=== PATIENT | male | born 1965 | race Two or more races ===

== ENCOUNTER 2021-02-27 23:51 | Emergency (ER) | payer OTHER ==
[~2021-02-27] VITALS: Ht 160 cm; Wt 65.8 kg
[2021-02-27 23:51] VITALS: BP 125/87
== END 2021-02-28 03:11 | disposition left against medical advice (07) ==
LOC: EEVIPCON 23:54 → ER 23:54
DX: M79.10 Myalgia, unspecified site (principal); Z53.21 Procedure and treatment not carried out due to patient leaving prior to being seen by health care provider; V89.2XXA Person injured in unspecified motor-vehicle accident, traffic, initial encounter; Y93.89 Activity, other specified; Y92.89 Other specified places as the place of occurrence of the external cause; Y99.8 Other external cause status

== ENCOUNTER 2021-03-18 18:10 | Emergency (ER) | payer OTHER ==
[~2021-03-18] VITALS: Ht 165.1 cm; Wt 72.6 kg
[2021-03-18] MEDS ORDERED: SODIUM CHLORIDE 0.9% 1,000 ML IVB ONE (18:45)
[2021-03-18 19:30] LABS: Basophils # (auto) 0 10 ^3/uL (0-0.2); Eosinophils # (auto) 0 10 ^3/uL (0-0.8); Eosinophils % (auto) 0.6 % (0.0-7.0); Hematocrit 46.4 % (41.0-53.0); Hemoglobin 15.5 g/dL (13.5-17.5); Lymphocytes % (auto) 28.6 % (10.0-50.0); Mean Corpuscular Hemoglobin 32.3 pg (28.0-32.0); Mean Corpuscular Hgb Conc. 33.4 g/dL (32.0-36.0); Mean Corpuscular Volume 96.7 fL (80.0-100.0); Monocytes # (auto) 0.5 10 ^3/uL (0-1.3); Monocytes % (auto) 7.6 % (0.0-12.0); Neutrophils # (auto) 4.5 10 ^3/uL (1.6-8.6); Neutrophils % (auto) 63.2 % (37.0-80.0); Nucleated Red Blood Cells % 0.2 %; Red Cell Distribution Width 14.9 % (11.8-14.3); White Blood Cell 7.1 10^3/uL (4.4-10.8)
[2021-03-18 20:01] LABS: Chloride 110 mmol/L (98-107); Potassium 3.9 mmol/L (3.5-5.1); Sodium 144 mmol/L (136-145)
[2021-03-18 20:05] LABS: Alanine Aminotransferase 46 U/L (16-61); Albumin 3.6 g/dL (3.4-5.0); Anion Gap 12 (5-15); BUN/Creatinine Ratio 13.5; Blood Urea Nitrogen 12 mg/dL (7-18); Calcium 8.5 mg/dL (8.5-10.1); Carbon Dioxide 22 mmol/L (21-32); GFR African American 115 mL/min; GFR Non-African American 95 mL/min; Glucose 104 mg/dL (74-106); Magnesium 2.6 mg/dL (1.6-2.6)
[2021-03-18 20:24] LABS: Alkaline Phosphatase 100 U/L (45-117); Aspartate Aminotransferase 24 U/L (15-37); Bilirubin, Total 0.2 mg/dL (0.2-1.0); Total Protein 7.5 g/dL (6.4-8.2)
[2021-03-19 04:30] VITALS: BP 99/61
== END 2021-03-19 06:41 | disposition home or self-care (01) ==
LOC: EDBD 18:10 → ER 18:11
DX: F10.129 Alcohol abuse with intoxication, unspecified (principal); R41.0 Disorientation, unspecified; R94.31 Abnormal electrocardiogram [ECG] [EKG]; Y90.5 Blood alcohol level of 100-119 mg/100 ml
CPT/HCPCS: 36415; 71045; 80053; 80320; 83735; 84484; 85025; 93005; 96360; 96361; 99285; J7030

== ENCOUNTER 2022-02-04 21:20 | Emergency (ER) | payer OTHER ==
[~2022-02-04] VITALS: Ht 172.7 cm; Wt 88.0 kg
[2022-02-05 08:18] VITALS: BP 130/73
== END 2022-02-05 08:39 | disposition home or self-care (01) ==
LOC: EDBD 21:20 → ER 21:20
DX: S00.81XA Abrasion of other part of head, initial encounter (principal); F10.129 Alcohol abuse with intoxication, unspecified; W18.39XA Other fall on same level, initial encounter; Y93.89 Activity, other specified; Y92.89 Other specified places as the place of occurrence of the external cause; Y99.8 Other external cause status; Y90.9 Presence of alcohol in blood, level not specified
CPT/HCPCS: 70450; 70486

== ENCOUNTER 2022-03-27 18:13 | Emergency (ER) | payer OTHER ==
[~2022-03-27] VITALS: Ht 172.7 cm; Wt 100.0 kg
[2022-03-27] MEDS ORDERED: SODIUM CHLORIDE 0.9% 1,000 ML IV ONE (19:00)
[2022-03-28 05:08] VITALS: BP 97/66
== END 2022-03-28 08:29 | disposition home or self-care (01) ==
LOC: EDBD 18:13 → ER 18:16
DX: F10.129 Alcohol abuse with intoxication, unspecified (principal); Y90.8 Blood alcohol level of 240 mg/100 ml or more
CPT/HCPCS: 96360; 99283; J7030

== ENCOUNTER 2024-11-25 14:54 | Emergency (ER) | payer OTHER ==
[~2024-11-25] VITALS: Ht 167.6 cm; Wt 91.0 kg
[2024-11-25 14:57] VITALS: BP 149/79; RESP 14; TEMP 98.9; O2SAT 95
[2024-11-25 15:00] VITALS: PULSE 98
--- NOTE | 2024-11-25 15:11 | ED.PDOC ---
Altered Mental Status HPI Comments 59 y/o M, BIBA, for CC of ALOC. EMS reports, patient is coming from [facility] where he was found on the ground, drooling, and not behaving appropriately. Upon arrival to scene, patient is unable to answer questions however, is Scottish speaking. It is unknown at this time if patient has any mental delays d/t cur rent condition; no other symptoms or modifiers are obtainable. Chief Complaint: ALOC Time Seen by MD: 15:00 Primary Care Provider: UNKNOWN Reviewed Notes: Nurses Notes, Sheltered Workshop Executive Director Notes, Medications, Allergies Allergies: Coded Allergies: No Known Drug Allergy (Verified Allergy, Unknown, 04/15/23) Information Source: Emergency Med Personnel Mode of Arrival: EMS Severity: Moderate Timing: Minutes Duration: Since onset Prehospital treatment: None Recent: None Associated Signs and Symptoms: None Past Medical History PAST MEDICAL HISTORY: Unobtainable Surgical History: Unobtainable Family History Family History: Unobtainable Social History Smoker: Unobtainable Alcohol: Heavy Drugs: Unobtainable Unable to Obtain due to: Altered Mental Status Physical Exam General Appearance: No Apparent Distress, Normal HEENT: Normal ENT Inspection, Pharynx Normal Neck: Full Range of Motion, Non-Tender, Normal, Normal Inspection Respiratory: Chest Non-Tender, Lungs Clear, No Accessory Muscle Use, No Respiratory Distress, Normal Breath Sounds Cardiovascular: No Edema, No Murmur, No Gallop, Normal Peripheral Pulses, Regular Rate/Rhythm Breast Exam: Deferred Gastrointestinal: No Organomegaly, Non Tender, No Pulsatile Mass, Normal Bowel Sounds, Soft Genitalia: Deferred Pelvic: Deferred Rectal: Deferred Extremities: No calf tenderness, Normal capillary refill, Normal inspection, Normal range of motion, Non-tender, No pedal edema Musculoskeletal : Apperance: Normal Neurologic: linotype mechanic II-XII nml as Tested, No Motor Deficits, Normal Mood, Sensory Deficit, Speech Problem, Other (A&Ox0) Cerebellar Function: Normal Reflexes: Normal Skin: Dry, Normal Color, Warm Lymphatic: No Adenopathy Was a procedure done? Was a procedure done?: No Differential Diagnosis (ALOC) Differential Diagnosis: Dehydration, Encephalopathy, ETOH Intoxication X-Ray, Labs, Meds, VS Vital Signs Date Time Temp Pulse Resp B/P (MAP) Pulse Ox O2 Delivery O2 Flow Rate FiO2 6/10/25 14:57 98.9 101 14 149/79 (224) 43 98.9 Time of 1ST Reevaluation: 15:30 Reevaluation 1ST: Unchanged Patient Education/Counseling: Diagnosis, Treatment Family Education/Counseling: No Family Present Critical Care Note Critical Care Time?: No Stability Stability form required: No Heart Score Heart Score: Heart Score Response (Comments) Value History N/A 0 EKG N/A 0 Age N/A 0 Risk Factors N/A 0 Troponin N/A 0 Total 0 I personally scribed for CHANELLE POST MD ([email or web address]) on 11/25/24 at 15:11. Electronically submitted by Maria Isabel Canales ([email or web address]). I personally scribed for CHANELLE POST MD ([email or web address]) on 11/25/24 at 15:15. Electronically submitted by Maria Isabel Canales ([email or web address]). CHANELLE POST MD Nov 25, 2024 15:11
[2024-11-25 15:40] LABS: Basophils # (auto) 0 10 ^3/uL (0-0.2); Basophils % (auto) 0.1 % (0.0-2.0); Eosinophils # (auto) 0.1 10 ^3/uL (0-0.8); Eosinophils % (auto) 0.6 % (0.0-7.0); Hematocrit 45.2 % (41.0-53.0); Hemoglobin 15.8 g/dL (13.5-17.5); Lymphocytes # (auto) 1.9 10 ^3/uL (0.4-5.4); Lymphocytes % (auto) 20.1 % (10.0-50.0); Mean Corpuscular Hemoglobin 32.3 pg (28.0-32.0); Mean Corpuscular Hgb Conc. 34.9 g/dL (32.0-36.0); Mean Corpuscular Volume 92.6 fL (80.0-100.0); Monocytes # (auto) 0.4 10 ^3/uL (0-1.3); Monocytes % (auto) 4.2 % (0.0-12.0); Nucleated Red Blood Cells % 0.1 %; Platelet Count (auto) 237 10^3/uL (140-450); Red Blood Cells 4.88 10^6/uL (4.5-5.90); Red Cell Distribution Width 13.4 % (11.8-14.3); White Blood Cell 9.3 10^3/uL (4.4-10.8)
--- NOTE | 2024-11-25 15:44 | ECG ---
[facility] Test Date: 2024-11-25 Test Time: 15:00:14 Pat Name: YAMILET HAJI Department: ED Room: Gender: M Professional Architect: MITZI : 1965 Requested By: CHANELLE POST Order Number: [id number] Reading MD: Simone Clarke Measurements Intervals [place] Rate: 98 P: 63 VA: 161 QRS: 118 QRSD: 78 T: 61 QT: 366 QTc: 468 Interpretive Statements Sinus rhythm Right axis deviation Low voltage, precordial leads Borderline T abnormalities, anterior leads Electronically Signed On 11-26-2024 21:10:56 PDT by Simone Clarke Please click the below link to view image of tracing.
[2024-11-25 15:56] LABS: Potassium 3.6 mmol/L (3.5-5.1)
[2024-11-25 15:57] LABS: Anion Gap 13 (5-15); Carbon Dioxide 26 mmol/L (20-31)
[2024-11-25 15:58] LABS: Calcium 9.7 mg/dL (8.7-10.4)
[2024-11-25 16:02] LABS: BUN/Creatinine Ratio 13.8 (10.0-20.0); Blood Urea Nitrogen 13 mg/dL (9-23); Glucose 92 mg/dL (74-106)
[2024-11-25 16:03] LABS: Chloride 108 mmol/L (98-107); Sodium 147 mmol/L (136-145)
[2024-11-25 16:13] LABS: Blood Alcohol 291.2 mg/dL (<10)
== END 2024-11-25 16:29 | disposition home or self-care (01) ==
LOC: EDBD 14:54 → ER 15:05
DX: R41.82 Altered mental status, unspecified (principal); Z79.899 Other long term (current) drug therapy
CPT/HCPCS: 36415; 80048; 80320; 82947; 85025; 93005